=== PATIENT | female | born 1960 ===

== ENCOUNTER 2022-10-01 17:27 | Emergency (ER) | payer MEDICAID ==
[~2022-10-01] VITALS: Ht 160 cm; Wt 86.4 kg
[2022-10-01 17:39] VITALS: BP 142/82
[2022-10-01 18:16] LABS: COVID AG,FIA SOURCE NASAL SWAB
[2022-10-01 18:54] LABS: INFLUENZA TYPE A NEGATIVE FOR TYPE A (NEGATIVE); INFLUENZA TYPE B NEGATIVE FOR TYPE B (NEGATIVE)
[2022-10-01] MEDS ORDERED: NIRM1TAB PO (19:18)
== END 2022-10-01 19:30 | disposition home or self-care (01) ==
LOC: EMS 17:33
DX: U07.1 COVID-19 (principal)
CPT/HCPCS: 87804; 99283